=== PATIENT | female | born 1995 | race Hispanic/Latino ===

== ENCOUNTER 2017-03-18 07:26 | Observation (INO) | payer BC ==
[2017-03-18 07:31] VITALS: BP 107/64; PULSE 85; TEMP 98; O2SAT 100; BMI 25.4
[2017-03-18 07:43] VITALS: RESP 18
[2017-03-18] MEDS ORDERED: Sodium Chloride 0.9% 1,000 ML IV STA ×2 (07:50→10:25)
--- NOTE | 2017-03-18 07:54 | ED PDOC ---
HPI: General Adult Time Seen by Provider: 03/18/17 07:39 Chief Complaint (Nursing): Headache Chief Complaint (Provider): Bodyaches History Per: Patient History/Exam Limitations: no limitations Onset/Duration Of Symptoms: Days Have you had recent travel within the past 21 days to any of the following countries: [place], [place], [place] or [place]?: No Current Symptoms Are (Timing): Still Present Additional Complaint(s): Pt. with bodyaches all over for 4 days. Started 1 day after working out. Tried ibuprofen which is not helping. Took 800mg today. Also with dysuria, back pain, increased freq of urination, urgency of urination as well for 2 days. Nausea and diarrhea x1. Has pelvic cramping that is like her period. No weakness, dyspnea. Had fever. No vision changes. Had mild headache yesterday that is gone now. No neck pain. Not worst pain of her life. No cough, congestion, runny nose. She works out everyday, but not for past 4 days. Past Medical History Reviewed: Nursing Documentation, Vital Signs Vital Signs: Last Vital Signs Temp 98 F 03/18/17 07:39 Pulse 85 03/18/17 07:39 Resp 18 03/18/17 07:39 BP 107/64 03/18/17 07:39 Pulse Ox 100 03/18/17 10:27 - Medical History PMH: No Chronic Diseases - Surgical History Surgical History: No Surg Hx - Family History Family History: States: Unknown Family Hx - Social History Current smoker - smoking cessation education provided: No Alcohol: None Drugs: Denies - Allergies Allergies/Adverse Reactions: Allergies Allergy/AdvReac Type Severity Reaction Status Date / Time eid Allergy Verified 03/18/17 07:48 peanut Allergy Verified 03/18/17 07:48 Review of Systems ROS Statement: Except As Marked, All Systems Reviewed And Found Negative Constitutional: Positive for: Fever Gastrointestinal: Positive for: Nausea, Abdominal Pain, Diarrhea Genitourinary Female: Positive for: Dysuria, Frequency Musculoskeletal: Positive for: Other (bodyaches) Neurological: Positive for: Headache Physical Exam - Reviewed Nursing Documentation Reviewed: Yes Vital Signs Reviewed: Yes - Physical Exam Appears: Positive for: Non-toxic, No Acute Distress Head Exam: Positive for: ATRAUMATIC, NORMAL INSPECTION, NORMOCEPHALIC Skin: Positive for: Normal Color, Warm, DRY Eye Exam: Positive for: EOMI, Normal appearance, PERRL ENT: Positive for: Normal ENT Inspection. Negative for: Nasal Congestion, Pharyngeal Erythema Neck: Positive for: Normal, Painless ROM, Supple Cardiovascular/Chest: Positive for: Regular Rate, Rhythm Respiratory: Positive for: CNT, Normal Breath Sounds Gastrointestinal/Abdominal: Positive for: Bowel Sounds, Soft, Tenderness (mild lower) Back: Positive for: Normal Inspection. Negative for: L CVA Tenderness, R CVA Tenderness Extremity: Positive for: Normal ROM. 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 Negative for: Motor/Sensory Deficits - Laboratory Results Result Diagrams: 03/18/17 08:30 03/18/17 08:30 Interpretation Of Abn Labs: 1044 cpk Urine POC: Negative Urine dip results: Positive for: Leukocyte Esterase - ECG O2 Sat by Pulse Oximetry: 100 Pulse Ox Interpretation: Normal - Progress ED Course And Treament: 1025: Stable. AAOx3. Pain free. Will repeat CPK post hydration. 1300: Stable. No pain. Tolerated PO. Ambulated with no issues. Pt. to drink a lot of fluids. Fu with [employer] for re-evaluation. ED OBSERVATION Discharge: Yes Date of observation admission: 03/18/17 Time of observation admission: 08:27 - Observation admission statement Patient is being placed in observation because:: Bodyaches - Goals of Observation Goals of observation are:: Bodyache and hydration needed - Progress Note Progress Note: 03/18/17 10:27 Doing better. Continue fluids. Will need recheck on cpk. 03/18/17 13:10 Better. Fu with pcp. Disposition - Clinical Impression Clinical Impression: Body aches, Rhabdomyolysis, UTI (urinary tract infection) - Patient ED Disposition Is Patient to be Admitted: No Counseled Patient/Family Regarding: Studies Performed, Diagnosis, Need For Followup, Rx Given - Disposition Disposition: Routine/Home Disposition Time: 13:10 Condition: STABLE - POA Present On Arrival: None
[2017-03-18 08:46] LABS: BASO % 0.2 % (0.0-2.0); EOS % 0.5 % (0.0-4.0); HEMATOCRIT 36.8 % (34.0-47.0); LYMPH # 0.8 K/uL (1.0-4.3); LYMPH % 13.8 % (20.0-40.0); MEAN CELL VOLUME 87.9 fl (81.0-99.0); MEAN CORPUSCULAR HEMOGLOBIN 29.9 pg (27.0-31.0); MEAN PLATELET VOLUME 8.2 fl (7.2-11.7); MONO # 0.4 K/uL (0.0-0.8); MONO % 7.3 % (0.0-10.0); NEUT # 4.6 K/uL (1.8-7.0); NEUT % 78.2 % (50.0-75.0); NRBC % 0.1 % (0.0-0.0); RED CELL DISTRIBUTION WIDTH 13.8 % (11.5-14.5); WHITE BLOOD COUNT 5.8 K/uL (4.8-10.8)
[2017-03-18 08:50] LABS: RBC URINE 2 /hpf (0-3); URINE BACTERIA RARE (<OCC); URINE BILIRUBIN NEGATIVE (NEGATIVE); URINE BLOOD MODERATE (NEGATIVE); URINE COLOR YELLOW (YELLOW); URINE GLUCOSE (UA) NEG (Normal); URINE KETONE NEGATIVE (NEGATIVE); URINE LEUKOCYTE ESTERASE MOD Leu/uL (Negative); URINE PROTEIN 100 mg/dL (NEGATIVE); URINE UROBILINOGEN 0.2-1.0 mg/dL (0.2-1.0); WBC URINE 5 /hpf (0-5)
[2017-03-18 08:59] LABS: ALB/GLOB RATIO 1.4 (1.0-2.1); ALKALINE PHOSPHATASE 55 U/L (38-126); ALT/SGPT 44 U/L (9-52); AST/SGOT 48 U/L (14-36); BILIRUBIN,TOTAL 0.4 mg/dl (0.2-1.3); BLOOD UREA NITROGEN 11 mg/dl (7-17); CARBON DIOXIDE 25 mmol/L (22-30); CHLORIDE 105 mmol/L (98-107); GFR AFRICAN-AMERICAN > 60; GLUCOSE,RANDOM 86 mg/dL (65-105); LIPASE 48 U/L (23-300); POTASSIUM 4.7 MMOL/L (3.6-5.0); SODIUM 140 mmol/l (132-148); TOTAL PROTEIN 7.2 G/DL (6.3-8.2)
[2017-03-18 09:12] LABS: MAGNESIUM 1.8 MG/DL (1.6-2.3); PHOSPHOROUS 3.3 mg/dl (2.5-4.5)
== END 2017-03-18 13:11 | disposition home or self-care (01) ==
LOC: H.ER 07:26 → H.EROBSV 10:26
PROVIDERS: ADMIT Emergency Medicine; ATTEND Emergency Medicine
DX: M62.82 Rhabdomyolysis (principal); N39.0 Urinary tract infection, site not specified; Z91.010 Allergy to peanuts; Z91.018 Allergy to other foods

== ENCOUNTER 2017-07-09 23:40 | Emergency (ER) | payer BC ==
[2017-07-09 23:40] VITALS: BMI 25.4
[2017-07-09 23:56] VITALS: BP 130/94; PULSE 115; RESP 18; O2SAT 98
--- NOTE | 2017-07-10 00:25 | ED PDOC ---
HPI: Psych/Substance Abuse Time Seen by Provider: 07/09/17 23:47 Chief Complaint (Nursing): Psychiatric Evaluation Chief Complaint (Provider): Psychiatric evaluation History Per: Patient History/Exam Limitations: no limitations Onset/Duration Of Symptoms: Hrs (prior to arrival) Modifying Factor(s): Alcohol Associated Symptoms: Suicidal Thoughts Additional History Per: EMS Additional Complaint(s): Angela Schilling is a 21 year old female, with a past medical history of depression, who was brought to the emergency department by [facility] after a friend called and reported that she was threatening to jump in [facility] onset prior to arrival. Patient reports to be stressed out from school related issues. She reports suicidal ideations and is currently taking antidepressants. Patient also admits to alcohol use. No further medical complaints. PMD: None provided. Past Medical History Reviewed: Historical Data, Nursing Documentation, Vital Signs Vital Signs: Last Vital Signs Temp Pulse 115 H 07/09/17 23:49 Resp 18 07/09/17 23:49 BP 130/94 H 07/09/17 23:49 Pulse Ox 98 07/09/17 23:49 - Medical History PMH: Depression, Migraine - Family History Family History: States: Unknown Family Hx - Social History Alcohol: Social Drugs: Denies - Home Medications Home Medications: Ambulatory Orders Medication Instructions Recorded Nitrofurantoin Macrocrystals 100 mg PO BID #10 cap 03/18/17 [Macrobid] - Allergies Allergies/Adverse Reactions: Allergies Allergy/AdvReac Type Severity Reaction Status Date / Time eid Allergy Verified 03/18/17 07:48 peanut Allergy Verified 03/18/17 07:48 Review of Systems ROS Statement: Except As Marked, All Systems Reviewed And Found Negative Psych: Positive for: Depression, Suicidal ideation Physical Exam - Reviewed Nursing Documentation Reviewed: Yes Vital Signs Reviewed: Yes - Physical Exam Appears: Positive for: Non-toxic Head Exam: Positive for: ATRAUMATIC, NORMAL INSPECTION, NORMOCEPHALIC Skin: Positive for: Normal Color, Warm, Dry Eye Exam: Positive for: EOMI, Normal appearance, PERRL Neck: Positive for: Normal, Painless ROM, Supple Cardiovascular/Chest: Positive for: Regular Rate, Rhythm. Negative for: Murmur Respiratory: Positive for: Normal Breath Sounds. Negative for: Respiratory Distress Gastrointestinal/Abdominal: Positive for: Normal Exam, Bowel Sounds, Soft. Negative for: Tenderness Back: Positive for: Normal Inspection (No midline tenderness). Negative for: L CVA Tenderness, R CVA Tenderness Extremity: Positive for: Normal ROM Neurologic/Psych: Positive for: Alert, Oriented, Mood/Affect (anxious, crying and tearful). Negative for: Motor/Sensory Deficits - Laboratory Results Result Diagrams: 07/10/17 00:46 07/10/17 00:46 - ECG O2 Sat by Pulse Oximetry: 98 (RA) Pulse Ox Interpretation: Normal Medical Decision Making Medical Decision Making: Initial Impression: 21 y/o female with suicidal ideation in setting of depression and alcohol use. Initial Plan: --Alcohol Serum --Comp Metabolic Panel --Drug screen --CBC w/ differential --Crisis evaluation --reevaluation -Pt was evaluated and cleared by crisis. He is in the care of the family at bedside. Diagnosis is anxiety and alcohol induced disorder. Scribe Attestation: Documented by Jignesh Moon, acting as a scribe for Salvador Cabrera MD. Provider Scribe Attestation: All medical record entries made by the Scribe were at my direction and personally dictated by me. I have reviewed the chart and agree that the record accurately reflects my personal performance of the history, physical exam, medical decision making, and the department course for this patient. I have also personally directed, reviewed, and agree with the discharge instructions and disposition. Disposition - Clinical Impression Clinical Impression: Anxiety, Alcohol-induced mood disorder - Disposition Disposition Time: 02:00 Condition: STABLE Instructions: Mood Disorders (ED), Anxiety (ED) Forms: [facility] (Bel[place]ian)
[2017-07-10 00:42] VITALS: TEMP 98.3
[2017-07-10 01:00] LABS: BASO # 0.1 K/uL (0.0-0.2); BASO % 0.6 % (0.0-2.0); EOS # 0.3 K/uL (0.0-0.7); EOS % 2.8 % (0.0-4.0); HEMATOCRIT 40.7 % (34.0-47.0); LYMPH % 27.9 % (20.0-40.0); MEAN CELL VOLUME 88.9 fl (81.0-99.0); MEAN CORPUSCULAR HEMOGLOBIN 29.2 pg (27.0-31.0); MEAN CORPUSCULAR HGB CONC 32.9 g/dL (33.0-37.0); MEAN PLATELET VOLUME 8.4 fl (7.2-11.7); MONO # 0.9 K/uL (0.0-0.8); MONO % 8.8 % (0.0-10.0); NEUT # 6.4 K/uL (1.8-7.0); NEUT % 59.9 % (50.0-75.0); RED CELL DISTRIBUTION WIDTH 13.5 % (11.5-14.5); WHITE BLOOD COUNT 10.6 K/uL (4.8-10.8)
[2017-07-10 01:11] LABS: ALB/GLOB RATIO 1.4 (1.0-2.1); ALCOHOL SERUM 240 mg/dl (0-10); ALKALINE PHOSPHATASE 52 U/L (38-126); ALT/SGPT 23 U/L (9-52); AST/SGOT 25 U/L (14-36); BILIRUBIN,TOTAL 0.3 mg/dl (0.2-1.3); BLOOD UREA NITROGEN 12 mg/dl (7-17); CALCIUM 9.6 mg/dL (8.4-10.2); CARBON DIOXIDE 22 mmol/L (22-30); CHLORIDE 110 mmol/L (98-107); GFR AFRICAN-AMERICAN > 60; GLUCOSE,RANDOM 87 mg/dL (65-105); POTASSIUM 3.7 MMOL/L (3.6-5.0); SODIUM 150 mmol/l (132-148)
== END 2017-07-10 02:13 | disposition home or self-care (01) ==
LOC: H.ER 23:40
DX: F10.94 Alcohol use, unspecified with alcohol-induced mood disorder (principal); F41.9 Anxiety disorder, unspecified; F32.9 Major depressive disorder, single episode, unspecified; R45.851 Suicidal ideations
CPT/HCPCS: 80053; 85025; 99282; G0480